=== PATIENT | male | born 1975 | race American Indian/Alaskan Native ===

== ENCOUNTER 2022-06-26 08:29 | Emergency (ER) | payer MEDICARE ==
[2022-06-26] MEDS ORDERED: traMADol 50 MG TAB PO ONE (10:03)
[2022-06-26 11:40] LABS: Mucus,Urine 2+ /HPF
[2022-06-26 11:43] LABS: Bilirubin,Urine Negative (Negative); Blood,Urine 2+ (Negative); Color,Urine Straw (Yellow); Urobilinogen,Urine < 2.0 mg/dL (<2.0)
--- NOTE | 2022-06-26 11:48 | Ultrasound Report ---
US pelvic limited INDICATION / CLINICAL INFORMATION: suprapubic cath placement TECHNIQUE: Intraoperative sonographic images were obtained during the procedure. FINDINGS: Intraoperative sonographic images for suprapubic catheter placement. Bladder volume originally measures 145 cc. Chung catheter is not confidently identified within the bl adder on procedure images. The bladder is subsequently collapsed following reinsertion of catheter bedside. See operative/procedure note by performing physician for full details. Signer Name: Bernabe Palomino MD Signed: 06/26/2022 11:44 AM Workstation Name: [id number]
--- NOTE | 2022-06-26 12:01 | Emergency Department Report ---
ED General Adult HPI - General Chief complaint: Abdominal Pain Stated complaint: URINE CATH DISPLACED PUI?: No Time Seen by Provider: 06/26/22 08:45 Source: patient, EMS Mode of arrival: Stretcher Limitations: No Limitations - History of Present Illness Initial comments: PT REPORTS ABD PAIN; SUPRAPUBIC DISPLACED YESTERDAY. -: hour(s) Location: pelvis Severity scale (0 -10): 5 Treatments Prior to Arrival: none - Related Data Allergies Allergy/AdvReac Type Severity Reaction Status Date / Time esomeprazole [From Nexium] AdvReac Unknown Verified 06/26/22 08:34 ED Review of Systems ROS: Stated complaint: URINE CATH DISPLACED Other details as noted in HPI Constitutional: denies: chills, fever Eyes: denies: eye pain, eye discharge, vision change ENT: denies: ear pain, throat pain Respiratory: denies: cough, shortness of breath, wheezing Cardiovascular: denies: chest pain, palpitations Endocrine: no symptoms reported Gastrointestinal: denies: abdominal pain, nausea, diarrhea Genitourinary: denies: urgency, dysuria Musculoskeletal: denies: back pain, joint swelling, arthralgia Skin: denies: rash, lesions Neurological: denies: headache, weakness, paresthesias Psychiatric: denies: anxiety, depression Hematological/Lymphatic: denies: easy bleeding, easy bruising ED Past Medical Hx - Past Medical History Hx Hypertension: Yes Hx Diabetes: Yes - Surgical History Additional Surgical History: abd surgery 2009 - Social History Smoking Status: Never Smoker Substance Use Type: None ED Physical Exam - General Limitations: No Limitations General appearance: alert, in no apparent distress - Head Head exam: Present: atraumatic, normocephalic - Eye Eye exam: Present: normal appearance - ENT ENT exam: Present: mucous membranes moist - Neck Neck exam: Present: normal inspection - Respiratory Respiratory exam: Present: normal lung sounds bilaterally. Absent: respiratory distress - Cardiovascular Cardiovascular Exam: Present: regular rate, normal rhythm. Absent: systolic murmur, diastolic murmur, rubs, gallop - GI/Abdominal GI/Abdominal exam: Present: soft, normal bowel sounds - Rectal Rectal exam: Present: deferred - Extremities Exam Extremities exam: Present: normal inspection - Back Exam Back exam: Present: normal inspection - Neurological Exam Neurological exam: Present: alert, oriented X3 - Psychiatric Psychiatric exam: Present: normal affect, normal mood - Skin Skin exam: Present: warm, dry, intact, normal color. Absent: rash ED Course Vital Signs 06/26/22 06/26/22 06/26/22 08:32 08:43 10:07 Temperature 97.6 F 97.5 F L Pulse Rate 77 59 L Respiratory 77 H 20 20 Rate Blood Pressure 96/62 Blood Pressure 120/70 96/62 [Left] O2 Sat by Pulse 98 97 Oximetry 06/26/22 10:42 Temperature 98.4 F Pulse Rate 78 Respiratory 18 Rate Blood Pressure Blood Pressure 104/70 [Left] O2 Sat by Pulse 98 Oximetry ED Medical Decision Making - Radiology Data Radiology results: report reviewed, image reviewed - Medical Decision Making suprpaubic cath replaced under US guidance Critical care attestation.: If time is entered above; I have spent that time in minutes in the direct care of this critically ill patient, excluding procedure time. ED Disposition Clinical Impression: Obstructed suprapubic catheter Disposition: HOME / SELF CARE / HOMELESS Is pt being admited?: No Does the pt Need Aspirin: No Condition: Stable Referrals: PRIMARY CARE, [Primary Care Provider] - 3-5 Days
[2022-06-26 12:30] VITALS: BP 112/68
== END 2022-06-26 12:29 | disposition home or self-care (01) ==
LOC: ED 08:29
DX: T85.9XXA Unspecified complication of internal prosthetic device, implant and graft, initial encounter (principal); I10 Essential (primary) hypertension; E11.9 Type 2 diabetes mellitus without complications; X58.XXXA Exposure to other specified factors, initial encounter
CPT/HCPCS: 51702; 76857; 81001; 87086; 99284